=== PATIENT | female | born 1975 | race Caucasian/White ===

== ENCOUNTER 2019-05-31 11:30 | Outpatient (CLI) | payer OTHER ==
--- NOTE | 2019-06-01 14:52 | Ultrasound Report ---
Reason: AUTOIMMUNE THYROIDITIS Procedure Date: 05/31/2019 Accession Number: [id number] / [id number] Procedure: US - Head or Neck Soft Tissue CPT Code: FULL RESULT: EXAM: THYROID ULTRASOUND EXAM DATE: 05/31/2019 12:05 PM. CLINICAL HISTORY: Autoimmune thyroiditis. COMPARISON: None. TECHNIQUE: Real time sonographic imaging of the thyroid was performed by the ultrasonic welding machine operator. Multiple national account representative static images were saved for review. FINDINGS: THYROID GLAND: Right Lobe: 3.8 x 1.6 x 1.2 cm, volume 3.8 cc. Heterogeneous echotexture and slightly lobular peripheral contour. No jeannette hyperemia on color Doppler. No nodule or calcification. Left Lobe: 3.2 x 1.1 x 1 cm, volume 1.8 cc. Heterogeneous echotexture with lobular peripheral contour, without hyperemia on color Doppler. No nodule or calcification. Isthmus: 0.2 cm AP. Isthmic Nodules: None. LYMPH NODES: No adenopathy demonstrated in the central or lateral compartment. IMPRESSION: 1. Heterogeneous mildly lobular thyroid gland with no discrete nodule, calcification, or thyromegaly. Findings are compatible with diffuse infiltrative process such as thyroiditis. [facility]
== END 2019-05-31 11:31 | disposition home or self-care (01) ==
LOC: DI 11:30
PROVIDERS: ATTEND Naturopath
DX: E06.3 Autoimmune thyroiditis (principal)
CPT/HCPCS: 76536

== ENCOUNTER 2021-04-29 16:19 | Outpatient (CLI) | payer OTHER ==
--- NOTE | 2021-04-29 18:16 | Ultrasound Report ---
PROCEDURE: Head or Neck Soft Tissue INDICATIONS: AUTOIMMUNE THYROIDITIS TECHNIQUE: Real-time scanning was performed of the thyroid gland, with image documentation. COMPARISON: Thyroid ultrasound 05/31/2019. FINDINGS: The right thyroid lobe measures 3.8 x 1.4 x 1.5 cm. The left thyroid lobe measures 3.3 x 1.3 x 1.2 cm . The isthmus measures 0.15 cm thick. The thyroid is diffusely heterogeneous without a focal thyroid nodule. Thyroid vascularity is within normal limits. Normal appearing cervical lymph nodes are seen i n the neck bilaterally. IMPRESSION: Diffusely heterogeneous thyroid without significant enlargement or increased vascularity. No discrete thyroid nodule identified. Findings are compatible with the provided history of thyroiditis and do n ot appear significantly changed when compared to the ultrasound from 05/31/2019. Reviewed by: Canelo Taylor MD on 04/29/2021 5:15 PM [facility] Approved by: Canelo Taylor MD on 04/29/2021 5:15 PM [facility] Station ID: [id number]
== END 2021-04-29 16:20 | disposition home or self-care (01) ==
LOC: DI 16:19
PROVIDERS: ATTEND Naturopath
DX: E06.3 Autoimmune thyroiditis (principal)

== ENCOUNTER 2021-12-13 13:37 | Outpatient (CLI) | payer OTHER ==
--- NOTE | 2021-12-13 14:07 | XRAY Report ---
PROCEDURE: Cervical Spine 2 View INDICATIONS: NUMBNESS IN LEFT HAND TECHNIQUE: 3 view(s) of the cervical spine were acquired. COMPARISON: None. FINDINGS: Bones: No fractures or dislocations to the T2 level. The lateral masses of C1 appear intact on the odontoid view. No suspicious bony lesions. Cervical spondylitic change, centered at C5-C6, where th ere is disc height loss and uncovertebral joint osteophyte. Additionally, there is lower cervical fac et sclerosis. Soft tissues: No prevertebral soft tissue swelling. IMPRESSION: Cervical spondylitic change. No evidence acute bony abnormality of the cervical spine. If clinical suspicion and/or symptoms persist, further assessment with advanced imaging (e.g., CT, MR I, or bone scan) may be helpful for further assessment. Reviewed by: Guilherme Cline MD on 12/13/2021 1:05 PM [facility] Approved by: Guilherme Cline MD on 12/13/2021 1:05 PM [facility] Station ID: [id number]
== END 2021-12-13 13:38 | disposition home or self-care (01) ==
LOC: DI 13:37
PROVIDERS: ATTEND Naturopath
DX: R20.2 Paresthesia of skin (principal); M99.01 Segmental and somatic dysfunction of cervical region; M47.812 Spondylosis without myelopathy or radiculopathy, cervical region

== ENCOUNTER 2023-04-07 09:00 | Outpatient (CLI) | payer OTHER ==
--- NOTE | 2023-04-07 15:24 | XRAY Report ---
PROCEDURE: Foot 3 View LT INDICATIONS: L FOOT PX TECHNIQUE: 3 views of the foot were acquired. COMPARISON: None. FINDINGS: Bones: No fractures or dislocations. No suspicious bony lesions. Soft tissues: No suspicious soft tissue calcifications or masses. IMPRESSION: No acute osseous abnormality. MRI could be considered for further evaluation if clinically indicated. Reviewed by: Tuan Villasenor MD on 04/07/2023 3:22 PM PDT Approved by: Tuan Villasenor MD on 04/07/2023 3:22 PM PDT Station ID: [id number]
== END 2023-04-07 09:01 | disposition home or self-care (01) ==
LOC: DI 09:00
PROVIDERS: ATTEND Naturopath
DX: M79.672 Pain in left foot (principal)

== ENCOUNTER 2023-07-30 12:29 | Outpatient (CLI) | payer OTHER ==
--- NOTE | 2023-07-30 12:54 | XRAY Report ---
PROCEDURE: Cervical Spine 2 View INDICATIONS: SHOULDER IMPINGEMENT SYNDROME,LEFT TECHNIQUE: 3 view(s) of the cervical spine were acquired. COMPARISON: None. FINDINGS: Bones: No fractures or dislocations to the C7-T1 level. The lateral masses of C1 appear intact on t he odontoid view. No suspicious bony lesions. Mild reversal of normal cervical curvature with apex at C5-6. There is trace retrolisthesis of C5 on C6. Moderate disc space narrowing is present C5-6, C6 -7. Soft tissues: No prevertebral soft tissue swelling. IMPRESSION: Reversal of curvature and degenerative changes most severe at C5-6 and C6-7. Reviewed by: Mojgan Sandoval MD on 07/30/2023 12:53 PM PDT Approved by: Mojgan Sandoval MD on 07/30/2023 12:53 PM PDT Station ID: [id number]
--- NOTE | 2023-07-30 13:00 | XRAY Report ---
PROCEDURE: Shoulder 3 View LT INDICATIONS: SHOULDER IMPINGEMENT SYNDROME,LEFT TECHNIQUE: 4 views of the shoulder were acquired. COMPARISON: None. FINDINGS: Bones: No fractures or dislocations. No suspicious bony lesions. Visualized ribs appear intact. Mild to moderate acromioclavicular narrowing. Soft tissues: Minimal calcific tendinitis. The visualized lungs are within normal limits. IMPRESSION: Mild to moderate acromioclavicular narrowing. Reviewed by: Mojgan Sandoval MD on 07/30/2023 12:59 PM PDT Approved by: Mojgan Sandoval MD on 07/30/2023 12:59 PM PDT Station ID: [id number]
== END 2023-07-30 12:30 | disposition home or self-care (01) ==
LOC: DI 12:29
PROVIDERS: ATTEND Physician Assistant Medical
DX: M75.42 Impingement syndrome of left shoulder (principal); M19.012 Primary osteoarthritis, left shoulder; M47.812 Spondylosis without myelopathy or radiculopathy, cervical region